=== PATIENT | male | born 1965 | race Caucasian/White ===

== ENCOUNTER → 2023-11-05 07:04 | Outpatient (REF) | payer OTHER, SELFPAY | LOC: RAD 07:04 | PROVIDERS: ATTENDING PHYSICIAN Otolaryngology; FAMILY PHYSICIAN Family Medicine | DX: R51.9 Headache, unspecified (principal); J01.10 Acute frontal sinusitis, unspecified | CPT/HCPCS: 70450 ==

== ENCOUNTER 2023-12-09 17:04 | Emergency (ER) | payer OTHER, SELFPAY ==
[2023-12-09 17:06] VITALS: BP 147/94
[2023-12-09] MEDS: TORADOL 30 MG IV (19:10)
[2023-12-09] MEDS: DECADRON 10 MG IV (19:11)
[2023-12-09] MEDS: VALIUM INJECTION 2 MG IV (19:11)
[2023-12-09] MEDS: ZOFRAN 4 MG IV (20:03)
[2023-12-09] MEDS: DILAUDID 0.5 MG IV (20:03)
[2023-12-09 20:29] VITALS: BP 140/90
--- NOTE | 2023-12-09 22:57 | ED.GENMED ---
History of Present Illness
General
Chief Complaint: Back Pain
Source: patient
Exam Limitations: none
Time Seen by Provider: 12/09/23 18:30
Nursing documentation reviewed up to this point in time: agreed with
Travel History
Have you had any contact with someone who has COVID-19?: No
Do you have any symptoms of coronavirus? Fever > 100 degrees, chills, cough, shortness of breath, sore throat, loss of taste or smell, muscle aches, or headache?: No
History of Present Illness
History of Present Illness:
Patient to ED with complaint of low back pain. Had mild discomfort for a few days but today the pain is unbearable. No history of trauma. Pain radiates to bilateral posterior thighs. No urinary symptoms. No saddle paresthesia. Denies
fever/chills, recent illness. Brought to ED by spouse for eval.
Past History
Past History
ED Past Medical History: GERD and Other (RA)
ED Past Surgical History: Urological
Social History
Tobacco: Non-smoker
Alcohol: Occasional
Drug: None
Personal:
Living: with family
Employment: Employed
Family History
Family History: Other (Noncontributory)
Review of Systems
Review of Systems
Allergies reviewed?: Yes
All Other Systems: ROS reviewed and negative except as documented in HPI and ROS
Constitutional: Reports no symptoms
EENT: Reports no symptoms
Respiratory: Reports no symptoms
Cardiac: Reports no symptoms
ABD/GI: Reports no symptoms
: Reports no symptoms
Musculoskeletal: Reports back pain (bilateral lower back pain)
Skin: Reports no symptoms
Neurological: Reports no symptoms
Psychiatric: Reports no symptoms
Phy Exam
General Physical Exam
General Presentation: well appearing and mild distress
General age: appears stated age
General Skin: warm and dry
General Habitus: normal
General Mental: alert
General Hydration: appears well hydrated
Musculoskeletal Exam
Musculoskeletal Exam: neuro vasc intact
Skin Exam
Skin Exam: normal color, warm/dry and no rash
Psychiatric Exam
Psychiatric Exam: normal mood/affect
Course
Orders/Labs/Results
Orders:
Orders
12/09/23 18:39
Dexamethasone Sod Phosphate [Decadron] 10 mg IV NOW STA
Ketorolac [Toradol] 30 mg IV NOW STA
diazePAM [Valium Injection] 2 mg IV NOW STA
12/09/23 18:40
Lumbar Spine Complete, 4 View [CR Lumbar Spine Comp Min 4 Vw*] Urgent
Comment:
Reason For Exam: pain
12/09/23 19:47
HYDROmorphone [Dilaudid] 0.5 mg IV NOW STA
Ondansetron Injectable [Zofran] 4 mg IV NOW STA
Vital Signs
Initial and Last Documented VS:
Initial Vital Signs
Temp Pulse Resp BP
98.0 F 62 16 147/94
12/09/23 17:06 12/09/23 17:06 12/09/23 17:06 12/09/23 17:06
Last Documented Vital Signs
Temp Pulse Resp BP Pulse Ox
98.0 F 53 16 140/90 97
12/09/23 17:06 12/09/23 20:29 12/09/23 20:29 12/09/23 20:29 12/09/23 20:29
*Radiology
Radiology exam reviewed: radiology read reviewed
*Pulse Oximetry
Patient hypoxic: no
*Critical Care Note
Total Time (30-74mins, 75-104mins- exclusive of procedures): Not Applicable
ED Attending Note
-
Portions of this chart may have been created with voice recognition software.� Occasional wrong word or��sound alike� substitutions may have occurred due to the inherent limitations of voice recognition software.
Discharge Plan
Departure
Patient Disposition: Home (Routine Discharge)
Date of Disposition: 12/09/23
Time of Disposition: 19:48
Patient with high blood pressure during this ER visit?: No
Condition: Good
Covid-19: Not Applicable
Discharge Problem:
Low back pain
Instructions: Low Back Pain (DC), Radiculopathy (DC)
Prescriptions:
New
oxycodone 5 mg capsule
5 mg PO Q4H PRN (Reason: Pain) Qty: 10 0RF
No Action
pantoprazole 40 MG tablet,delayed release (DR/EC)
40 mg PO DAILY
hydroxychloroquine 200 MG tablet
400 mg PO DAILY
tamsulosin 0.4 MG capsule
0.4 mg PO DAILY Qty: 30 0RF
diazepam 5 MG tablet
5 mg PO TIDPRN PRN (Reason: Pain, spasm) Qty: 12 0RF
amoxicillin-pot clavulanate 875-125 mg tablet
1 tab PO BID Qty: 19 0RF
Referrals:
Lambert Elias, DO [Non-Admitting Privileges] - Keep scheduled appt
Dae Laguna, DO [Family Provider] -
Interventions
Interventions:
*Risk Screen - Suicide Last Done: 12/09/23 17:06
*General Assessment Last Done: 12/09/23 17:06
*Neglect/Abuse Screening Last Done: 12/09/23 17:06
ED- Fall Risk Assessment Last Done: 12/09/23 20:29
*ED COVID-19 Vaccine History Last Done: 12/09/23 20:29
*Nursing Disposition Last Done: 12/09/23 20:29
ED-Musculoskeletal Assessment Last Done: 12/09/23 18:24
Discharge Date and Time
Discharge Date/Time: 12/09/23 20:30
Print Language: LATVIAN
Musculoskeletal Injury Exam
Musculoskeletal Injury Exam
Bilateral Lower Back:
Pain with Movement?: Moderate
Tender to palpation?: Moderate
Soft tissue swelling?: None
External deformity and angulation?: None
Joint effusion?: None
Contusion?: None
Hematoma-local bleeding into tissue?: None
Strain- Sprain- Tear (Connective tissue injury)?: Moderate
Crepitus with movement?: No
Joint instability?: No
Malalignment/deformity?: No
Range of motion: Limited
Distal skin color and temperature: normal-warm & good color
Capillary Refill: normal
Normal distal neurovascular exam?: Yes
== END 2023-12-09 20:30 | disposition home or self-care (01) ==
LOC: EMR 17:04
PROVIDERS: EMERGENCY PHYSICIAN Emergency Medicine; FAMILY PHYSICIAN Family Medicine
DX: M54.50 Low back pain, unspecified (principal); K21.9 Gastro-esophageal reflux disease without esophagitis; M06.9 Rheumatoid arthritis, unspecified
CPT/HCPCS: 99283; 96374; 96375; 72110

== ENCOUNTER 2024-01-31 15:47 | Emergency (ER) | payer OTHER, SELFPAY ==
[2024-01-31 15:49] VITALS: BP 124/91
[2024-01-31] MEDS: DECADRON 20 MG IV (17:04)
[2024-01-31] MEDS: ZOFRAN 4 MG IV (17:05)
[2024-01-31] MEDS: DILAUDID 1 MG IV ×2 (17:05→19:36)
[2024-01-31 17:23] VITALS: BP 122/79
[2024-01-31 18:00] VITALS: BP 116/74
[2024-01-31 19:00] VITALS: BP 115/78
--- NOTE | 2024-01-31 19:09 | ED.GENMED ---
History of Present Illness
General
Chief Complaint: Back Pain
Source: patient, records and spouse
Exam Limitations: none
Time Seen by Provider: 01/31/24 16:12
Nursing documentation reviewed up to this point in time: agreed with
Travel History
Have you had any contact with someone who has COVID-19?: No
Do you have any symptoms of coronavirus? Fever > 100 degrees, chills, cough, shortness of breath, sore throat, loss of taste or smell, muscle aches, or headache?: No
History of Present Illness
History of Present Illness:
Patient is a 58-year-old male with a history of back issues receiving epidural injections the last being 10 days ago and is to see his orthopedic surgeon and 4 days presents with increasing low back pain radiating into the posterior of his right
leg. Patient is unable to stand. Patient states it started approximately 2 to 3 hours prior to presentation to the emergency department while sitting on a couch holding her grandchild. Patient denies any specific movement. Patient denies any
numbness or paresthesias. Patient denies any incontinence. Patient has had back issues previously. Patient had an MRI 2 years ago which showed mild to moderate spinal stenosis but nothing of particular significance. Patient denies fever or
chills. Patient denies any GI or symptoms.
Past History
Past History
ED Past Medical History: GERD and Other (RA)
ED Past Surgical History: Urological
Social History
Tobacco: Non-smoker
Alcohol: Occasional
Drug: None
Personal:
Living: with family
Employment: Employed
Family History
Family History: Other (Noncontributory)
Review of Systems
Review of Systems
All Other Systems: ROS reviewed and negative except as documented in HPI and ROS
Constitutional: Reports no symptoms
Respiratory: Reports no symptoms
Cardiac: Reports no symptoms
ABD/GI: Reports no symptoms
: Reports no symptoms; Denies incontinence
Musculoskeletal: Reports back pain
Skin: Reports no symptoms
Neurological: Reports no symptoms
Hematologic/Lymphatic: Reports no symptoms
Phy Exam
Physical Exam
Physical Exam:
Physical Exam
General: No apparent significant distress, alert and appropriate, well nourished, well hydrated
HENT: Normocephalic, supple
Eyes: Clear sclera, conjuctiva without injection
Heart: Regular rhythm and rate. No S3, S4. No murmur.
Lungs: No respiratory distress, no stridor, lung sounds clear and equal bilaterally
Abdomen: Soft, nontender, BS good
Neuro: Alert and oriented x 3, CN II - XII intact, no motor focality, no cerebellar dysfunction, sensory intact
Skin: no rash
Psychiatric: well kept. interactive and cooperative
Extremities: No edema, cyanosis, tenderness, Good and equal peripheral pulses.
Musculoskeletal: Tenderness in the L4-L5 region mostly in the paravertebral region on the right with tenderness in the right SI joint and the right buttock. Increases with 5 degrees of straight leg raising on the right and increases with sciatic
stretch on the right.
Course
Orders/Labs/Results
Orders:
Orders
01/31/24 16:29
Dexamethasone Sod Phosphate [Decadron] 20 mg IV NOW STA
HYDROmorphone [Dilaudid] 1 mg IV NOW STA
Ondansetron Injectable [Zofran] 4 mg IV NOW STA
01/31/24 19:09
HYDROmorphone [Dilaudid] 1 mg IV NOW STA
Vital Signs
Initial and Last Documented VS:
Initial Vital Signs
Temp Pulse Resp BP Pulse Ox
97.9 F 88 16 124/91 94
01/31/24 15:49 01/31/24 15:49 01/31/24 15:49 01/31/24 15:49 01/31/24 15:49
Last Documented Vital Signs
Temp Pulse Resp BP Pulse Ox
97.9 F 60 20 116/74 94
01/31/24 15:49 01/31/24 17:23 01/31/24 17:23 01/31/24 18:00 01/31/24 18:30
*Radiology
Radiology exam reviewed: other (na)
*Pulse Oximetry
Patient hypoxic: no
*EKG
Interpreted by ED Provider?: NA
*Cell Attendant Interpretation
Rate: Cell Attendant- N/A
*Critical Care Note
Total Time (30-74mins, 75-104mins- exclusive of procedures): Not Applicable
Update Note
Update Note:
Patient initially was unable to stand on his own. I explained if this was the case that we would need to admit him to the hospital for rehab. Patient was unable to stand on his own and preferred to go home. Patient was offered admission. Patient
will be treated as an outpatient and see his orthopedist in 4 days.
ED Attending Note
-
Portions of this chart may have been created with voice recognition software.� Occasional wrong word or��sound alike� substitutions may have occurred due to the inherent limitations of voice recognition software.
Discharge Plan
Departure
Patient Disposition: Home (Routine Discharge)
Date of Disposition: 01/31/24
Time of Disposition: 19:15
Patient with high blood pressure during this ER visit?: No
Condition: Fair
Covid-19: Not Applicable
Discharge Problem:
Acute right-sided back pain with sciatica
Instructions: Low Back Pain (DC), Sciatica (DC)
Prescriptions:
New
oxycodone 5 mg tablet
5 - 10 mg PO Q4H PRN (Reason: Pain) Qty: 30 0RF
prednisone 20 mg tablet
20 mg PO BID Qty: 14 0RF
No Action
pantoprazole 40 MG tablet,delayed release (DR/EC)
40 mg PO DAILY
hydroxychloroquine 200 MG tablet
400 mg PO DAILY
tamsulosin 0.4 MG capsule
0.4 mg PO DAILY Qty: 30 0RF
diazepam 5 MG tablet
5 mg PO TIDPRN PRN (Reason: Pain, spasm) Qty: 12 0RF
amoxicillin-pot clavulanate 875-125 mg tablet
1 tab PO BID Qty: 19 0RF
oxycodone 5 mg capsule
5 mg PO Q4H PRN (Reason: Pain) Qty: 10 0RF
Referrals:
Dae Laguna, DO [Family Provider] - Follow up in 5-7 days
Activity Restrictions/Additional Instructions:
No lifting more than 5 pounds. Ice or heat to the low back area whichever feels better for 20 minutes 4-5 times a day. Make sure to follow-up with your orthopedist as scheduled.
Interventions
Interventions:
*General Assessment Last Done: 01/31/24 18:41
*Neglect/Abuse Screening Last Done: 01/31/24 18:41
*ED COVID-19 Vaccine History Last Done: 01/31/24 15:49
ED-Musculoskeletal Assessment Last Done: 01/31/24 17:25
Discharge Date and Time
Print Language: THAI
== END 2024-01-31 20:33 | disposition home or self-care (01) ==
LOC: EMR 15:47
PROVIDERS: EMERGENCY PHYSICIAN Emergency Medicine; FAMILY PHYSICIAN Family Medicine
DX: M54.41 Lumbago with sciatica, right side (principal)
CPT/HCPCS: 99284; 96374; 96375 ×2; 96376

== ENCOUNTER 2025-08-01 11:07 | Emergency (ER) | payer OTHER, SELFPAY ==
[2025-08-01 11:13] VITALS: BP 138/88
[2025-08-01 11:35] LABS: Hematocrit 46.9 % (39.0-52.0); Hemoglobin 16.5 g/dL (13.0-18.0); Mean Corp Hgb Conc. 35.2 g/dL (33.0-37.0); Mean Corpuscular Volume 87.7 fL (80.0-94.0); Nucleated Red Blood Cells % 0 % (-); Platelet Count 186 10^3/uL (130-400); Red Cell Dist. Width 11.8 % (11.5-14.5)
[2025-08-01 11:48] LABS: ALT (SGPT) 23 U/L (0-50); AST (SGOT) 31 U/L (17-59); Albumin 5.0 g/dl (3.5-5.0); Alkaline Phosphatase 74 U/L (38-126); Blood Urea Nitrogen 16 mg/dl (9-20); Calcium 9.7 mg/dl (8.4-10.2); Carbon Dioxide 29 mmol/L (22-30); Chloride 102 mmol/L (98-107); Glucose 93 mg/dl (70-99); Lipase 196 U/L (23-300); Potassium 4.5 mmol/L (3.5-5.1); Sodium 138 mmol/L (135-145); Total Protein 8.1 g/dl (6.3-8.2); eGFR > 60.00
[2025-08-01 12:00] VITALS: BP 110/82
[2025-08-01] MEDS: NSS 1000 IV (12:07)
[2025-08-01] MEDS: DILAUDID 1 MG IV (12:07)
[2025-08-01] MEDS: ZOFRAN 4 MG IV (12:07)
--- NOTE | 2025-08-01 12:15 | ED.GENMED ---
History of Present Illness
General
Chief Complaint: Abdominal Pain
Source: patient
Exam Limitations: none
Time Seen by Provider: 08/01/25 11:44
Nursing documentation reviewed up to this point in time: agreed with
History of Present Illness
History of Present Illness:
60-year-old male patient Dr. Flores left lower abdominal pain loose stool for a few weeks placed on a bland diet scheduled for an outpatient CAT scan in a few days pain worsened over the past day or 2 nausea without vomiting intermittent
constipation loose stool has not been on antibiotics has had diverticulitis previously which this reminds him of
Past History
Past History
ED Past Medical History: GERD and Other (RA)
ED Past Surgical History: Urological
Social History
Tobacco: Non-smoker
Alcohol: Occasional
Drug: None
Personal:
Living: with family
Employment: Employed
Family History
Family History: Other (Noncontributory)
Phy Exam
Physical Exam
Physical Exam:
Physical Exam
General: 60 male nontoxic looks mildly uncomfortable
Neck: No jaundice
Heart: s1/s2 regular rate and rhythm, no murmur. equal radial pulses.
Lungs: no acute respiratory distress. clear bilaterally
Abdomen: Tender in the left lower abdomen
Neuro: alert and oriented. no focal neurological deficits
Skin: no rash
Psychiatric: well kept. interactive and cooperative
Extremities: no edema.
Course
Orders/Labs/Results
Orders:
Orders
08/01/25 11:21
Complete Blood Count/With Diff Urgent
Comprehensive Metabolic Panel Urgent
Lipase Urgent
08/01/25 11:44
CT Abd/pelvis W Iv Cont Urgent
Comment:
Reason For Exam: pain tics
08/01/25 12:02
0.9% Sodium Chloride 1000 ml [Nss] 1,000 ml IV BOLUS
HYDROmorphone [Dilaudid] 1 mg IV NOW STA
Ondansetron Injectable [Zofran] 4 mg IV NOW STA
08/01/25 13:57
Piperacillin/Tazo 3.375 Gram [Zosyn] 3.375 gram in 50 ml IV NOW
Abnormal Lab Results
08/01/25
11:21
Absolute Neuts (auto) 8.5 H 10^3/uL
(1.4-6.5)
Absolute Lymphs (auto) 1.1 L 10^3/uL
(1.2-3.4)
Neutrophils % 84.9 H %
(42.2-75.2)
Lymphocytes % 10.6 L %
(20.5-51.1)
08/01/25 11:21
08/01/25 11:21
Vital Signs
Initial and Last Documented VS:
Initial Vital Signs
Temp Pulse Resp BP Pulse Ox
98.4 F 86 16 138/88 99
08/01/25 11:13 08/01/25 11:13 08/01/25 11:13 08/01/25 11:13 08/01/25 11:13
Last Documented Vital Signs
Temp Pulse Resp BP Pulse Ox
98.4 F 55 18 123/77 99
08/01/25 11:13 08/01/25 13:46 08/01/25 13:46 08/01/25 13:41 08/01/25 13:45
MDM/Problems Addressed
Differential Diagnosis Includes:
Diverticulitis colitis nonspecific abdominal pain renal
MDM/Problems Addressed:
Left lower quadrant
Chronic conditions affecting care:
Diverticula
Acute Exacerbation and/or Progression of Chronic Illness:
Diverticulitis
*Radiology
Radiology exam reviewed: radiology read reviewed
*Pulse Oximetry
SaO2: 95
Oxygen Mode of Delivery: Room air
Patient hypoxic: no
*Critical Care Note
Total Time (30-74mins, 75-104mins- exclusive of procedures): Not Applicable
Update Note
Update Note:
[address] update [address] noted patient feeling much better appears to be a candidate for outpatient treatment
ED Attending Note
-
Portions of this chart may have been created with voice recognition software.� Occasional wrong word or��sound alike� substitutions may have occurred due to the inherent limitations of voice recognition software.
Discharge Plan
Departure
Patient Disposition: Home (Routine Discharge)
Date of Disposition: 08/01/25
Time of Disposition: 13:57
Patient with high blood pressure during this ER visit?: No
Condition: Good
Discharge Problem:
Diverticulitis
Instructions: Diverticulitis (DC)
Prescriptions:
New
amoxicillin-pot clavulanate 875-125 mg tablet
1 tab PO BID Qty: 20 0RF
ondansetron 4 mg tablet,disintegrating
4 mg PO Q8H PRN (Reason: nausea and vomiting) Qty: 14 0RF
oxycodone 5 mg tablet
5 mg PO Q6H PRN (Reason: Pain) Qty: 14 0RF
oxycodone 5 mg tablet
5 mg PO Q8H PRN (Reason: Pain) Qty: 15 0RF
No Action
pantoprazole 40 MG tablet,delayed release (DR/EC)
40 mg PO DAILY
hydroxychloroquine 200 MG tablet
400 mg PO DAILY
tamsulosin 0.4 MG capsule
0.4 mg PO DAILY Qty: 30 0RF
diazepam 5 MG tablet
5 mg PO TIDPRN PRN (Reason: Pain, spasm) Qty: 12 0RF
amoxicillin-pot clavulanate 875-125 mg tablet
1 tab PO BID Qty: 19 0RF
oxycodone 5 mg capsule
5 mg PO Q4H PRN (Reason: Pain) Qty: 10 0RF
oxycodone 5 mg tablet
5 - 10 mg PO Q4H PRN (Reason: Pain) Qty: 30 0RF
prednisone 20 mg tablet
20 mg PO BID Qty: 14 0RF
Referrals:
Jorge Luis Birmingham MD [Non-Admitting Privileges, Gastroenterology] - Follow up in 1 week
Dae Laguna DO [Family Provider, Family Practice]
Activity Restrictions/Additional Instructions:
Antibiotics as prescribed continue a bland diet return to the ER if worsening symptoms follow-up with your [facility]oop admin
Interventions
Interventions:
*Risk Screen - Suicide Last Done: 08/01/25 11:13
*General Assessment Last Done: 08/01/25 11:55
*Neglect/Abuse Screening Last Done: 08/01/25 11:47
*ED- Fall Risk Assessment Last Done: 08/01/25 11:55
*ED COVID-19 Vaccine History Last Done: 08/01/25 11:47
*ED Influenza Vaccine History Last Done: 08/01/25 11:47
HZ-Igklaz-Jhvlxussmp Assessment Last Done: 08/01/25 11:55
Discharge Date and Time
Print Language: PASHTO
[2025-08-01 13:41] VITALS: BP 123/77
[2025-08-01] MEDS: ZOSYN 50 IV (13:59)
[2025-08-01 14:00] VITALS: BP 121/72
== END 2025-08-01 14:40 | disposition home or self-care (01) ==
LOC: EMR 11:07
PROVIDERS: EMERGENCY PHYSICIAN Emergency Medicine; FAMILY PHYSICIAN Family Medicine
DX: K57.32 Diverticulitis of large intestine without perforation or abscess without bleeding (principal); K21.9 Gastro-esophageal reflux disease without esophagitis; M06.9 Rheumatoid arthritis, unspecified
CPT/HCPCS: 99284; 96365; 96375 ×2; 74177; 80053; 83690; 85025; Q9967